=== PATIENT | male | born 1965 | race African-American/Black ===

== ENCOUNTER 2017-03-30 11:37 | Inpatient (IN) | payer OTHER ==
[2017-03-30 12:36] VITALS: BMI 28.8
--- NOTE | 2017-03-30 15:11 | HP ---
CIWA Score - CIWA Score Nausea/Vomitin-Mild Nausea/No Vomiting Muscle Tremors: 3 Anxiety: 2 Agitation: 2 Paroxysmal Sweats: 2 Orientation: 0-Oriented Tacttile Disturbances: 2-Mild Itch/Numbness/Burn Auditory Disturbances: 0-None Visual Disturbances: 0-None Headache: 1-Very Mild CIWA-Ar Total Score: 13 Admission ROS BHS - HPI Chief Complaint: i need to stop drinking cause it interferes with my life. I need to get surgery on my back and I need to stop drinking for it to be done . Allergies/Adverse Reactions: Allergies Allergy/AdvReac Type Severity Reaction Status Date / Time Bleach (Sodium Hypochlorite) Allergy Severe Difficulty Verified 03/30/17 15:05 Breathing seafood Allergy Severe Swelling Uncoded 03/30/17 15:05 NKDA Allergy Uncoded 03/30/17 15:05 History of Present Illness: 52 y/o m pt with h/o chronic alcoholism and cocaine abuse seeking detox. Exam Limitations: No Limitations - Ebola screening Have you traveled outside of the country in the last 21 days: No Have you had contact with anyone from an Ebola affected area: No Have you been sick,other than usual withdrawal symptoms: No Do you have a fever: No - Review of Systems Constitutional: Malaise, Changes in sleep, Weakness EENT: reports: Blurred Vision Respiratory: reports: Shortness of Breath, Wheezing Cardiac: reports: Chest Pain GI: reports: No Symptoms Reported : reports: No Symptoms Reported Musculoskeletal: reports: Joint Pain, Muscle Pain, Muscle Weakness Integumentary: reports: No Symptoms Reported Neuro: reports: Tremors Endocrine: reports: No Symptoms Reported Hematology: reports: No Symptoms Reported Psychiatric: reports: No Sypmtoms Reported Other Systems: Reviewed and Negative Patient History - Patient Medical History Hx Anemia: No Hx Asthma: Yes Hx Chronic Obstructive Pulmonary Disease (COPD): No Hx Cancer: No Hx Cardiac Disorders: Yes (h/o mi x 3) Hx Hypertension: Yes Hx Hypercholesterolemia: Yes Hx Pacemaker: No HX Cerebrovascular Accident: Yes (h/o cva x 4) Hx Seizures: No Hx Dementia: No Hx Diabetes: No Hx Gastrointestinal Disorders: No Hx Liver Disease: No Hx Genitourinary Disorders: No Hx Sexually Transmitted Disorders: No Hx Renal Disease (ESRD): No Hx Thyroid Disease: No Hx Human Immunodeficiency Virus (HIV): No Hx Hepatitis C: No Hx Depression: Yes Hx Suicide Attempt: No Hx Bipolar Disorder: No Hx Schizophrenia: No - Patient Surgical History Past Surgical History: Yes Other Surgical History: berhane . wrist surgery 2nd to fall - PPD History Previous Implant?: Yes Documented Results: Positive w/proof PPD to be Administered?: No - Reproductive History Patient is a Female of Child Bearing Age (11 -55 yrs old): No - Smoking Cessation Smoking history: Current every day smoker Have you smoked in the past 12 months: Yes Aproximately how many cigarettes per day: 2 Hx Chewing Tobacco Use: No Initiated information on smoking cessation: Yes 'Breaking Loose' booklet given: 03/30/17 - Substance & Tx. History Hx Alcohol Use: Yes Hx Substance Use: Yes Substance Use Type: Cocaine Hx Substance Use Treatment: Yes - Substances Abused Alcohol Route: Oral Frequency: Daily Amount used: shanell 1-5th q 3 days , beer > 1 six pk/d Age of first use: 12 Date of Last Use: 03/30/17 Cocaine Route: Inhalation Frequency: 1-3 times last 30 days Amount used: $20. Age of first use: 51 Date of Last Use: 03/28/17 Family Disease History - Family Disease History Family Disease History: Diabetes: Mother (htn), Other: Mother, Brother (htn), Sister (htn ) Admission Physical Exam S - Vital Signs Vital Signs: Vital Signs - 24 hr 03/30/17 12:35 Temperature 97.8 F Pulse Rate 81 Respiratory 20 Rate Blood Pressure 148/107 - Physical General Appearance: Yes: Appropriately Dressed, Anxious HEENTM: Yes: EOMI, Hearing grossly Normal, Normocephalic, Normal Voice, HARMONY Respiratory: Yes: Chest Non-Tender, Lungs Clear, Normal Breath Sounds, No Respiratory Distress Neck: Yes: Within Normal Limits Breast: Yes: Within Normal Limits Cardiology: Yes: Regular Rhythm, Regular Rate, S1, S2 Abdominal: Yes: Normal Bowel Sounds, Non Tender, Flat, Soft, Increased Bowel Sounds Genitourinary: Yes: Hesitency Back: Yes: Decreased Range of Motion Musculoskeletal: Yes: Back pain, Joint Stiffness, Muscle Pain Extremities: Yes: Tremors Neurological: Yes: housekeeping/laundry II-XII NML intact, Fully Oriented, Alert, Motor Strength 5/5 Integumentary: Yes: Moist Lymphatic: Yes: Within Normal Limits - Diagnostic (1) Chronic alcoholism Current Visit: Yes Status: Chronic (2) HTN (hypertension) Current Visit: Yes Status: Chronic Qualifiers: Hypertension type: essential hypertension Qualified Code(s): I10 - Essential (primary) hypertension (3) Hyperlipidemia Current Visit: Yes Status: Chronic Qualifiers: Hyperlipidemia type: unspecified Qualified Code(s): E78.5 - Hyperlipidemia, unspecified (4) Asthma Current Visit: Yes Status: Chronic Qualifiers: Asthma severity: mild intermittent (5) H/O heart disorder Current Visit: Yes Status: Chronic Cleared for Admission BHS - Detox or Rehab [facility] Level of Care: Medically Managed Detox Regimen/Protocol: Librium [facility] Breath Alcohol Content Breath Alcohol Content: 0 Urine Drug Screen - Results Urine Drug Screen Results: JOSSE-Cocaine
[2017-03-30] MEDS ORDERED: MAGNESIUM CITRATE 300 ML BOTTLE PO PRN (15:43)
[2017-03-30] MEDS ORDERED: MAG HYDROX/AL HYDROX/SIMETH 30 ML UNIT-DOSE CUP PO PRN (15:43)
[2017-03-30] MEDS ORDERED: P-EPHED 60MG/TRIPROLIDI 2.5MG TABLET PO PRN (15:43)
[2017-03-30] MEDS ORDERED: MAGNESIUM HYDROX 2400MG/30ML ORAL SUSPENSION 30 ML CUP PO PRN (15:43)
[2017-03-30] MEDS ORDERED: MENTHOL/PHENOL 1 EACH UD MM PRN (15:43)
[2017-03-30] MEDS ORDERED: ACETAMINOPHEN 325 MG TABLET (FP) PO PRN (15:43)
[2017-03-30] MEDS ORDERED: guaiFENesin/D-METHORPHAN HB 10 ML UNIT-DOSE CUPS PO PRN (15:43)
[2017-03-30] MEDS ORDERED: chlordiazePOXIDE HCL 25 MG CAPSULE PO ONE (15:43)
[2017-03-30] MEDS ORDERED: NICOTINE POLACRILEX 2 MG GUM BC PRN (15:43)
[2017-03-30] MEDS ORDERED: chlordiazePOXIDE HCL 25 MG CAPSULE PO PRN (15:43)
[2017-03-30] MEDS ORDERED: LOPERAMIDE HCL 2 MG CAPSULE PO PRN (15:43)
[2017-03-30] MEDS ORDERED: ALBUTEROL SO4 6.7 GM HFA INHALER IH PRN (15:46)
[2017-03-30] MEDS ORDERED: LIDOCAINE 5% TOPICAL PATCH TP ONE (16:30)
[2017-03-30] MEDS ORDERED: ERGOCALCIFEROL (VITAMIN D2) 50,000 UNIT CAPSULE (FP) PO SCH (16:30)
[2017-03-30] MEDS: chlordiazePOXIDE HCL 25 MG CAPSULE PO SCH ×2 (17:11→22:05)
[2017-03-30] MEDS: THIAMINE HCL 100 MG TABLET (FP) PO SCH (22:00)
[2017-03-30] MEDS: IBUPROFEN 400 MG TABLET (FP) PO PRN (22:01)
[2017-03-30] MEDS: LIDOCAINE PATCH REMOVAL MC SCH (22:02)
[2017-03-30] MEDS: ATORVASTATIN CA 10 MG TABLET (FP) PO SCH (22:04)
[2017-03-30 22:14] LABS: URINE APPEARANCE SLCLOUDY; URINE BILIRUBIN NEGATIVE (NEGATIVE); URINE BLOOD NEGATIVE (NEGATIVE); URINE COLOR YELLOW; URINE GLUCOSE (UA) NEGATIVE (NEGATIVE); URINE KETONE NEGATIVE (NEGATIVE); URINE LEUK ESTERASE NEGATIVE (NEGATIVE); URINE NITRITE NEGATIVE (NEGATIVE); URINE PROTEIN NEGATIVE (NEGATIVE); URINE UROBILINOGEN NEGATIVE mg/dL (0.2-1.0)
[2017-03-31] MEDS: chlordiazePOXIDE HCL 25 MG CAPSULE PO SCH ×4 (05:41→22:29)
[2017-03-31 10:02] LABS: MCHC 31.9 g/dl (32.0-35.9); MEAN CELL VOLUME 97.1 fl (80-96); MEAN PLT VOLUME 8.7 fl (7.5-11.1); PLATELET COUNT 191 K/MM3 (134-434); RDW 12.9 % (11.9-15.9); WHITE BLOOD COUNT 6.6 K/mm3 (4.0-10.0)
[2017-03-31 10:19] LABS: ALBUMIN 3.5 g/dl (3.4-5.0); ALK PHOS 52 U/L (45-117); ANION GAP 7 (8-16); BILIRUBIN,TOTAL 0.8 mg/dL (0.2-1.0); CALCIUM 8.9 mg/dL (8.5-10.1); CO2 29 mmol/L (21-32); CREATININE 1.2 mg/dL (0.7-1.3); GLUCOSE,RANDOM 93 mg/dL (74-106); SGOT/AST 7 U/L (15-37); SGPT/ALT 18 U/L (12-78); TOT PROT 6.9 g/dl (6.4-8.2)
[2017-03-31] MEDS: PRENATAL VITAMINS W/ FOLIC ACID TABLET (FP) PO SCH (11:02)
[2017-03-31] MEDS: VALSARTAN 160 MG TABLET (UD) PO SCH (11:03)
--- NOTE | 2017-03-31 11:17 | EKG ---
Test Reason : Blood Pressure : / mmHG Vent. Rate : 063 BPM Atrial Rate : 063 BPM P-R Int : 142 ms QRS Dur : 072 ms QT Int : 428 ms P-R-T Axes : 047 060 047 degrees QTc Int : 437 ms NORMAL SINUS RHYTHM NORMAL ECG NO PREVIOUS ECGS AVAILABLE Confirmed by JUAN MCCLOUD MD ([id number]) on 03/31/2017 11:16:59 AM Referred By: Confirmed By:JUAN MCCLOUD MD
--- NOTE | 2017-03-31 12:07 | PN ---
[facility] CIWA - CIWA Score Nausea/Vomitin-No Nausea/No Vomiting Muscle Tremors: 4-Moderate,w/Arms Extend Anxiety: 4-Mod. Anxious/Guarded Agitation: 4-Moderately Restless Paroxysmal Sweats: 1-Minimal Palms Moist Orientation: 0-Oriented Tacttile Disturbances: 3-Moderate Itch/Numb/Burn Auditory Disturbances: 0-None Visual Disturbances: 0-None Headache: 0-None Present CIWA-Ar Total Score: 16 BHS Progress Note (SOAP) Subjective: ANXIETY; HX CHRONIC BACK AND LEG ACHES; INTERMITTENT SLEEP. Objective: 03/31/17 12:05 Vital Signs Temperature 97.2 F L 03/31/17 10:21 Pulse Rate 91 H 03/31/17 10:21 Respiratory Rate 20 03/31/17 10:21 Blood Pressure 148/105 03/31/17 10:21 O2 Sat by Pulse Oximetry (%) Laboratory Last Values WBC 6.6 K/mm3 (4.0-10.0) 03/31/17 07:00 RBC 4.16 M/mm3 (4.00-5.60) 03/31/17 07:00 Hgb 12.9 GM/dL (11.7-16.9) 03/31/17 07:00 Hct 40.4 % (35.4-49) 03/31/17 07:00 MCV 97.1 fl (80-96) H 03/31/17 07:00 MCH 31.0 pg (25.7-33.7) 03/31/17 07:00 MCHC 31.9 g/dl (32.0-35.9) L 03/31/17 07:00 RDW 12.9 % (11.9-15.9) 03/31/17 07:00 Plt Count 191 K/MM3 (134-434) 03/31/17 07:00 MPV 8.7 fl (7.5-11.1) 03/31/17 07:00 Sodium 143 mmol/L (136-145) 03/31/17 07:00 Potassium 3.7 mmol/L (3.5-5.1) 03/31/17 07:00 Chloride 107 mmol/L (98-107) 03/31/17 07:00 Carbon Dioxide 29 mmol/L (21-32) 03/31/17 07:00 Anion Gap 7 (8-16) L 03/31/17 07:00 BUN 13 mg/dL (7-18) 03/31/17 07:00 Creatinine 1.2 mg/dL (0.7-1.3) 03/31/17 07:00 Creat Clearance w eGFR > 60 (>60) 03/31/17 07:00 Random Glucose 93 mg/dL (74-106) 03/31/17 07:00 Calcium 8.9 mg/dL (8.5-10.1) 03/31/17 07:00 Total Bilirubin 0.8 mg/dL (0.2-1.0) 03/31/17 07:00 AST 7 U/L (15-37) L 03/31/17 07:00 ALT 18 U/L (12-78) 03/31/17 07:00 Alkaline Phosphatase 52 U/L (45-117) 03/31/17 07:00 Total Protein 6.9 g/dl (6.4-8.2) 03/31/17 07:00 Albumin 3.5 g/dl (3.4-5.0) 03/31/17 07:00 Urine Color Yellow 03/30/17 21:45 Urine Appearance Slcloudy 03/30/17 21:45 Urine pH 5.0 (5.0-8.0) 03/30/17 21:45 Urine Protein Negative (NEGATIVE) 03/30/17 21:45 Urine Glucose (UA) Negative (NEGATIVE) 03/30/17 21:45 Urine Ketones Negative (NEGATIVE) 03/30/17 21:45 Urine Blood Negative (NEGATIVE) 03/30/17 21:45 Urine Nitrite Negative (NEGATIVE) 03/30/17 21:45 Urine Bilirubin Negative (NEGATIVE) 03/30/17 21:45 Urine Urobilinogen Negative mg/dL (0.2-1.0) 03/30/17 21:45 Ur Leukocyte Esterase Negative (NEGATIVE) 03/30/17 21:45 Assessment: 03/31/17 12:06 WITHDRAWAL SX Plan: CONTINUE DETOX FLEXERIL AND LIDOCAINE PATCH DIRECTED
[2017-03-31 14:13] LABS: HIV 1 & 2 AB NEGATIVE; HIV 1 AGp24 NEGATIVE
[2017-03-31] MEDS: ATORVASTATIN CA 10 MG TABLET (FP) PO SCH (22:29)
[2017-03-31] MEDS: THIAMINE HCL 100 MG TABLET (FP) PO SCH (22:29)
[2017-03-31] MEDS: LIDOCAINE PATCH REMOVAL MC SCH (22:30)
[2017-03-31] MEDS: diphenhydrAMINE HCL 50 MG CAPSULE PO PRN (22:31)
[2017-03-31] MEDS: CYCLOBENZAPRINE HCL 10 MG TABLET (FP) PO PRN (23:12)
[2017-04-01] MEDS: chlordiazePOXIDE HCL 25 MG CAPSULE PO SCH ×2 (05:44→10:38)
[2017-04-01] MEDS: IBUPROFEN 400 MG TABLET (FP) PO PRN (05:47)
[2017-04-01] MEDS: CYCLOBENZAPRINE HCL 10 MG TABLET (FP) PO PRN ×2 (05:47→22:39)
[2017-04-01] MEDS: PRENATAL VITAMINS W/ FOLIC ACID TABLET (FP) PO SCH (10:36)
[2017-04-01] MEDS: VALSARTAN 160 MG TABLET (UD) PO SCH (12:16)
--- NOTE | 2017-04-01 12:21 | PN ---
[facility] CIWA - CIWA Score Nausea/Vomitin-No Nausea/No Vomiting Muscle Tremors: 4-Moderate,w/Arms Extend Anxiety: 4-Mod. Anxious/Guarded Agitation: 4-Moderately Restless Paroxysmal Sweats: 1-Minimal Palms Moist Orientation: 0-Oriented Tacttile Disturbances: 3-Moderate Itch/Numb/Burn Auditory Disturbances: 0-None Visual Disturbances: 0-None Headache: 0-None Present CIWA-Ar Total Score: 16 S Progress Note (SOAP) Subjective: ANXIETY,SWEATS,TREMORS, FATIGUE. Objective: 04/01/17 12:21 Vital Signs Temperature 96.2 F L 04/01/17 10:20 Pulse Rate 90 04/01/17 10:20 Respiratory Rate 20 04/01/17 10:20 Blood Pressure 162/122 04/01/17 10:20 O2 Sat by Pulse Oximetry (%) Laboratory Last Values WBC 6.6 K/mm3 (4.0-10.0) 03/31/17 07:00 RBC 4.16 M/mm3 (4.00-5.60) 03/31/17 07:00 Hgb 12.9 GM/dL (11.7-16.9) 03/31/17 07:00 Hct 40.4 % (35.4-49) 03/31/17 07:00 MCV 97.1 fl (80-96) H 03/31/17 07:00 MCH 31.0 pg (25.7-33.7) 03/31/17 07:00 MCHC 31.9 g/dl (32.0-35.9) L 03/31/17 07:00 RDW 12.9 % (11.9-15.9) 03/31/17 07:00 Plt Count 191 K/MM3 (134-434) 03/31/17 07:00 MPV 8.7 fl (7.5-11.1) 03/31/17 07:00 Sodium 143 mmol/L (136-145) 03/31/17 07:00 Potassium 3.7 mmol/L (3.5-5.1) 03/31/17 07:00 Chloride 107 mmol/L (98-107) 03/31/17 07:00 Carbon Dioxide 29 mmol/L (21-32) 03/31/17 07:00 Anion Gap 7 (8-16) L 03/31/17 07:00 BUN 13 mg/dL (7-18) 03/31/17 07:00 Creatinine 1.2 mg/dL (0.7-1.3) 03/31/17 07:00 Creat Clearance w eGFR > 60 (>60) 03/31/17 07:00 Random Glucose 93 mg/dL (74-106) 03/31/17 07:00 Calcium 8.9 mg/dL (8.5-10.1) 03/31/17 07:00 Total Bilirubin 0.8 mg/dL (0.2-1.0) 03/31/17 07:00 AST 7 U/L (15-37) L 03/31/17 07:00 ALT 18 U/L (12-78) 03/31/17 07:00 Alkaline Phosphatase 52 U/L (45-117) 03/31/17 07:00 Total Protein 6.9 g/dl (6.4-8.2) 03/31/17 07:00 Albumin 3.5 g/dl (3.4-5.0) 03/31/17 07:00 Urine Color Yellow 03/30/17 21:45 Urine Appearance Slcloudy 03/30/17 21:45 Urine pH 5.0 (5.0-8.0) 03/30/17 21:45 Ur Specific [place] >= 1.030 (1.005-1.025) H 03/30/17 21:45 Urine Protein Negative (NEGATIVE) 03/30/17 21:45 Urine Glucose (UA) Negative (NEGATIVE) 03/30/17 21:45 Urine Ketones Negative (NEGATIVE) 03/30/17 21:45 Urine Blood Negative (NEGATIVE) 03/30/17 21:45 Urine Nitrite Negative (NEGATIVE) 03/30/17 21:45 Urine Bilirubin Negative (NEGATIVE) 03/30/17 21:45 Urine Urobilinogen Negative mg/dL (0.2-1.0) 03/30/17 21:45 Ur Leukocyte Esterase Negative (NEGATIVE) 03/30/17 21:45 RPR Titer Nonreactive (NONREACTIVE) 03/31/17 07:00 HIV 1&2 Antibody Screen Negative 03/31/17 07:00 HIV P24 Antigen Negative 03/31/17 07:00 Assessment: 04/01/17 12:21 WITHDRAWAL SX Plan: CONTINUE DETOX
[2017-04-01] MEDS ORDERED: cloNIDine HCL 0.1 MG TABLET PO PRN (12:24)
[2017-04-01] MEDS ORDERED: chlordiazePOXIDE HCL 25 MG CAPSULE PO ONE (14:00)
[2017-04-01] MEDS: chlordiazePOXIDE 5 MG CAPSULE PO SCH ×2 (17:53→22:37)
[2017-04-01] MEDS: THIAMINE HCL 100 MG TABLET (FP) PO SCH (22:37)
[2017-04-01] MEDS: ATORVASTATIN CA 10 MG TABLET (FP) PO SCH (22:37)
[2017-04-01] MEDS: diphenhydrAMINE HCL 50 MG CAPSULE PO PRN (22:38)
[2017-04-01] MEDS: LIDOCAINE PATCH REMOVAL MC SCH (22:39)
[2017-04-02] MEDS: chlordiazePOXIDE 5 MG CAPSULE PO SCH ×2 (06:18→10:17)
[2017-04-02 09:39] VITALS: BP 137/110; PULSE 93; TEMP 97.9
[2017-04-02] MEDS: PRENATAL VITAMINS W/ FOLIC ACID TABLET (FP) PO SCH (10:17)
[2017-04-02] MEDS: VALSARTAN 160 MG TABLET (UD) PO SCH (10:17)
--- NOTE | 2017-04-02 14:58 | DS ---
[facility] Detox Discharge Summary Admission Date: 03/30/17 Discharge Date: 04/02/17 - History Present History: Alcohol Dependence Additional Comments: PATIENT DOES NOT WISH TO STAY TO COMPLETE DETOX REGIMEN. PATIENT ADVISED TO IMMEDIATELY GO TO NEAREST ER SHOULD ANY INTOLERABLE DETOX SYMPTOMS DEVELOP AT ANY TIME. PATIENT LEFT UNIT IN STABLE MEDICAL CONDITION. Pertinent Past History: HTN, History of [place], History of CVA, Asthma, Hyperlipidemia. - Physical Exam Results Vital Signs: Vital Signs Temperature 97.9 F 04/02/17 09:38 Pulse Rate 93 H 04/02/17 09:38 Respiratory Rate 18 04/02/17 09:38 Blood Pressure 137/110 04/02/17 09:38 O2 Sat by Pulse Oximetry (%) Pertinent Admission Physical Exam Findings: WITHDRAWAL SYMPTOMS. Laboratory Tests 03/30/17 03/31/17 03/31/17 21:45 07:00 07:00 WBC 6.6 RBC 4.16 Hgb 12.9 Hct 40.4 MCV 97.1 H MCH 31.0 MCHC 31.9 L RDW 12.9 Plt Count 191 MPV 8.7 Sodium 143 Potassium 3.7 Chloride 107 Carbon Dioxide 29 Anion Gap 7 L BUN 13 Creatinine 1.2 Creat Clearance w eGFR > 60 Random Glucose 93 Calcium 8.9 Total Bilirubin 0.8 AST 7 L ALT 18 Alkaline Phosphatase 52 Total Protein 6.9 Albumin 3.5 Urine Color Yellow Urine Appearance Slcloudy Urine pH 5.0 Ur Specific [place] >= 1.030 H Urine Protein Negative Urine Glucose (UA) Negative Urine Ketones Negative Urine Blood Negative Urine Nitrite Negative Urine Bilirubin Negative Urine Urobilinogen Negative Ur Leukocyte Esterase Negative RPR Titer HIV 1&2 Antibody Screen HIV P24 Antigen 03/31/17 03/31/17 07:00 07:00 WBC RBC Hgb Hct MCV MCH MCHC RDW Plt Count MPV Sodium Potassium Chloride Carbon Dioxide Anion Gap BUN Creatinine Creat Clearance w eGFR Random Glucose Calcium Total Bilirubin AST ALT Alkaline Phosphatase Total Protein Albumin Urine Color Urine Appearance Urine pH Ur Specific [place] Urine Protein Urine Glucose (UA) Urine Ketones Urine Blood Urine Nitrite Urine Bilirubin Urine Urobilinogen Ur Leukocyte Esterase RPR Titer Nonreactive HIV 1&2 Antibody Screen Negative HIV P24 Antigen Negative LABS NOTED. - Treatment Hospital Course: Detoxed Safely - Medication Discharge Medications: Ambulatory Orders Albuterol Sulfate Inhaler - [Ventolin Hfa Inhaler -] 2 inh PO Q4H PRN 03/30/17 Ergocalciferol (Vitamin D2) [Vitamin D2] 50,000 unit PO WEEKLY 03/30/17 Multivitamins [Tab-A-Vit -] 1 tab PO DAILY 03/30/17 Pravastatin Sodium [Pravachol (Nf)] 20 mg PO HS 03/30/17 Valsartan 320 mg PO DAILY 03/30/17 - Diagnosis (1) Alcohol dependence with uncomplicated withdrawal Current Visit: Yes Status: Acute (2) Asthma Current Visit: Yes Status: Chronic Qualifiers: Asthma severity: mild intermittent Asthma complication type: uncomplicated Qualified Code(s): J45.20 - Mild intermittent asthma, uncomplicated (3) H/O heart disorder Current Visit: Yes Status: Chronic (4) HTN (hypertension) Current Visit: Yes Status: Chronic Qualifiers: Hypertension type: essential hypertension Qualified Code(s): I10 - Essential (primary) hypertension (5) Hyperlipidemia Current Visit: Yes Status: Chronic Qualifiers: Hyperlipidemia type: unspecified Qualified Code(s): E78.5 - Hyperlipidemia, unspecified - AMA Did Patient Leave Against Medical Advice: Yes (PATIENT DID NOT WISH TO STAY TO COMPLETE DETOX REGIMEN.)
[2017-04-02] MEDS ORDERED: chlordiazePOXIDE HCL 10 MG CAPSULE PO SCH (17:00)
== END 2017-04-02 15:00 | disposition left against medical advice (07) | DRG 770 ==
LOC: EDBD 11:37 → YASAS 11:37 → Y3N 15:57
PROVIDERS: ADMIT Internal Medicine; ATTEND Internal Medicine
PROC: HZ2ZZZZ Detoxification Services for Substance Abuse Treatment (ICD-10-PCS; principal; 2017-04-02)
DX: F10.230 Alcohol dependence with withdrawal, uncomplicated (principal); F14.20 Cocaine dependence, uncomplicated; F32.9 Major depressive disorder, single episode, unspecified; I10 Essential (primary) hypertension; E78.00 Pure hypercholesterolemia, unspecified; J45.20 Mild intermittent asthma, uncomplicated; I25.2 Old myocardial infarction; Z86.73 Personal history of transient ischemic attack (TIA), and cerebral infarction without residual deficits
CPT/HCPCS: 36415; 71020-TC; 80053; 81003; 85027; 86593; 87389; 93005; 93010

== ENCOUNTER 2017-10-07 10:27 | Inpatient (IN) | payer OTHER ==
[2017-10-07 11:35] VITALS: BMI 27.6
--- NOTE | 2017-10-07 17:42 | HP ---
CIWA Score - CIWA Score Nausea/Vomitin-No Nausea/No Vomiting Muscle Tremors: 4-Moderate,w/Arms Extend Anxiety: 4-Mod. Anxious/Guarded Agitation: 2 Paroxysmal Sweats: 3 Orientation: 0-Oriented Tacttile Disturbances: 0-None Auditory Disturbances: 0-None Visual Disturbances: 3-Moderate Sensitivity Headache: 0-None Present CIWA-Ar Total Score: 16 Admission ROS S - HPI Chief Complaint: "I have to get off of these drugs and Alcohol." Patient is here to Detox from Alcohol. Allergies/Adverse Reactions: Allergies Allergy/AdvReac Type Severity Reaction Status Date / Time Bleach (Sodium Hypochlorite) Allergy Severe Difficulty Verified 10/07/17 16:35 Breathing seafood Allergy Severe Swelling Uncoded 10/07/17 16:35 NKDA Allergy Uncoded 10/07/17 16:35 History of Present Illness: Patient is a 52 YO male here to Detox from Alcohol. Patient has had a previous Detox admission at [facility] in 03/2017. Patient had a Detox admission at [facility] ([place], [place] approx. 3 weeks ago. Patient completed full detox program; however, he relapsed 2-3 days after discharge. Exam Limitations: No Limitations - Ebola screening Have you traveled outside of the country in the last 21 days: No Have you had contact with anyone from an Ebola affected area: No Have you been sick,other than usual withdrawal symptoms: No Do you have a fever: No - Review of Systems Constitutional: Chills, Diaphoresis, Malaise, Changes in sleep, Unintentional Wgt. Loss (Lost approx. 20 lbs. over last two months.) EENT: reports: No Symptoms Reported Respiratory: reports: Shortness of Breath Cardiac: reports: Palpitations GI: reports: No Symptoms Reported : reports: Urgency Musculoskeletal: reports: Back Pain, Muscle Pain, Neck Pain, Joint Stiffness Integumentary: reports: No Symptoms Reported Neuro: reports: Numbness (Bilateral Legs and Feet (due to back injury @ 1997).) , Tingling (Bilateral Legs and Feet (due to back injury @ 1997).), Tremors Endocrine: reports: No Symptoms Reported Hematology: reports: No Symptoms Reported Psychiatric: reports: Judgement Intact, Mood/Affect Appropiate, Orientated x3, Depressed (No Previous Treatment.) Other Systems: Reviewed and Negative Patient History - Patient Medical History Hx Anemia: No Hx Asthma: Yes (Uses MDI PRN.) Hx Chronic Obstructive Pulmonary Disease (COPD): No Hx Cancer: No Hx Cardiac Disorders: No Hx Congestive Heart Failure: No Hx Hypertension: Yes (non compliant with meds.) Hx Hypercholesterolemia: Yes (On med.) Hx Pacemaker: No HX Cerebrovascular Accident: Yes (h/o cva x 4 (Last: 2012).) Hx Seizures: No Hx Dementia: No Hx Diabetes: No Hx Gastrointestinal Disorders: No Hx Liver Disease: No Hx Genitourinary Disorders: No Hx Sexually Transmitted Disorders: Yes (Pt was tx for gonnorhea (approx. 1 month ago).) Hx Renal Disease (ESRD): No Hx Thyroid Disease: No Hx Human Immunodeficiency Virus (HIV): No (Negative History.) Hx Hepatitis C: No (Never Tested.) Hx Depression: Yes (No Previous Treatment.) Hx Suicide Attempt: No (PATIENT DENIES CURRENT SI / HI.) Hx Bipolar Disorder: No Hx Schizophrenia: No Other Medical History: Spinal Injury (Lumbar);Work-Related,1997;Residual Weakness in bilateral leg - Patient Surgical History Past Surgical History: Yes Hx Neurologic Surgery: No Hx Cataract Extraction: No Hx Cardiac Surgery: No Hx Lung Surgery: No Hx Breast Surgery: No Hx Breast Biopsy: No Hx Abdominal Surgery: No Hx Appendectomy: No Hx Cholecystectomy: No Hx Genitourinary Surgery: No Hx Section: No Hx Orthopedic Surgery: No Other Surgical History: Bilateral wrist surgery 2nd to fall tendon repairs (1992 ). Anesthesia Reaction: No - PPD History Previous Implant?: Yes Documented Results: Positive w/proof (CXR (03/2017): Negative for Acute Pathology.) Implanted On Prior [facility] Admission?: No PPD to be Administered?: No - Reproductive History Patient is a Female of Child Bearing Age (11 -55 yrs old): No (PATIENT IS MALE.) - Smoking Cessation Smoking history: Current every day smoker Have you smoked in the past 12 months: Yes Aproximately how many cigarettes per day: 5 Cigars Per Day: 0 Hx Chewing Tobacco Use: No Initiated information on smoking cessation: Yes 'Breaking Loose' booklet given: 10/07/17 (GIVEN TO PATIENT.) - Substance & Tx. History Hx Alcohol Use: Yes Hx Substance Use: Yes Substance Use Type: Alcohol, Cocaine Hx Substance Use Treatment: Yes (Detox admission at [facility] (08/2017); Detox at [facility] (03/2017).) - Substances Abused Alcohol Route: Oral Frequency: Daily Amount used: 3 - 40 oz beers Age of first use: 12 Date of Last Use: 10/07/17 Cocaine Route: Smoking Frequency: Daily Amount used: $10-20 Age of first use: 21 Date of Last Use: 10/07/17 Family Disease History - Family Disease History Family Disease History: Diabetes: Mother (htn), Other: Mother, Sister (htn ) Admission Physical Exam [facility] - Vital Signs Vital Signs: Vital Signs - 24 hr 10/07/17 10/07/17 11:34 16:18 Temperature 97.4 F L 97.4 F L Pulse Rate 108 H 108 H Respiratory 18 18 Rate Blood Pressure 115/77 115/77 - Physical General Appearance: Yes: No Apparent Distress, Nourished, Appropriately Dressed , Tremorous, Anxious HEENTM: Yes: Hearing grossly Normal, Normocephalic, Normal Voice, HARMONY, Pharynx Normal Respiratory: Yes: Chest Non-Tender, Lungs Clear, No Respiratory Distress, No Accessory Muscle Use Neck: Yes: No masses,lesions,Nodules, Supple, Trachea in good position Breast: Yes: Breast Exam Deferred Cardiology: Yes: Regular Rhythm, Regular Rate, S1, S2 Abdominal: Yes: Normal Bowel Sounds, Non Tender, Flat, Protuberent Genitourinary: Yes: Within Normal Limits Back: Yes: CVA Tenderness, Decreased Range of Motion Musculoskeletal: Yes: Gait Steady, Back pain, Joint Stiffness, Muscle Pain Extremities: Yes: Tremors Neurological: Yes: Fully Oriented, Alert, Normal Mood/Affect, Normal Response, Other (Weakness in bilateral legs and feet (Secondary to Work-Related injury in 1997).) Integumentary: Yes: Normal Color, Dry, Warm Lymphatic: Yes: Within Normal Limits - Diagnostic (1) Chronic back pain Current Visit: Yes Status: Chronic Qualifiers: Back pain location: low back pain Back pain laterality: bilateral Sciatica presence: with sciatica Sciatica laterality: bilateral sciatica Qualified Code(s): M54.42 - Lumbago with sciatica, left side; M54.41 - Lumbago with sciatica, right side; M54.41 - Lumbago with sciatica, right side; G89.29 - Other chronic pain; G89.29 - Other chronic pain (2) Depression (emotion) Current Visit: Yes Status: Chronic Qualifiers: Depression Type: unspecified Qualified Code(s): F32.9 - Major depressive disorder, single episode, unspecified (3) Nicotine dependence Current Visit: Yes Status: Chronic Qualifiers: Nicotine product type: cigarettes Substance use status: uncomplicated Qualified Code(s): F17.210 - Nicotine dependence, cigarettes, uncomplicated (4) Alcohol dependence with uncomplicated withdrawal Current Visit: Yes Status: Acute (5) Cocaine dependence, uncomplicated Current Visit: Yes Status: Acute (6) Asthma Current Visit: Yes Status: Chronic Qualifiers: Asthma severity: mild Asthma persistence: intermittent Asthma complication type: uncomplicated Qualified Code(s): J45.20 - Mild intermittent asthma, uncomplicated (7) HTN (hypertension) Current Visit: Yes Status: Chronic Qualifiers: Hypertension type: essential hypertension Qualified Code(s): I10 - Essential (primary) hypertension (8) Hyperlipidemia Current Visit: Yes Status: Chronic Qualifiers: Hyperlipidemia type: unspecified Qualified Code(s): E78.5 - Hyperlipidemia , unspecified (9) History of back injury Current Visit: Yes Status: Chronic Cleared for Admission S - Detox or Rehab [facility] Level of Care: Medically Managed Detox Regimen/Protocol: Librium S Breath Alcohol Content Breath Alcohol Content: 0.097 Urine Drug Screen - Results Drug Screen Negative: No Urine Drug Screen Results: THC-Marijuana, JOSSE-Cocaine
[2017-10-07] MEDS ORDERED: MAGNESIUM HYDROX 2400MG/30ML ORAL SUSPENSION 30 ML CUP PO PRN (18:15)
[2017-10-07] MEDS ORDERED: MAG HYDROX/AL HYDROX/SIMETH 30 ML UNIT-DOSE CUP PO PRN (18:15)
[2017-10-07] MEDS ORDERED: NICOTINE POLACRILEX 2 MG GUM BC PRN (18:15)
[2017-10-07] MEDS ORDERED: P-EPHED 60MG/TRIPROLIDI 2.5MG TABLET PO PRN (18:15)
[2017-10-07] MEDS ORDERED: IBUPROFEN 400 MG TABLET (FP) PO PRN (18:15)
[2017-10-07] MEDS ORDERED: chlordiazePOXIDE HCL 25 MG CAPSULE PO PRN (18:15)
[2017-10-07] MEDS ORDERED: MENTHOL/PHENOL 1 EACH UD MM PRN (18:15)
[2017-10-07] MEDS ORDERED: guaiFENesin/D-METHORPHAN HB 10 ML UNIT-DOSE CUPS PO PRN (18:15)
[2017-10-07] MEDS ORDERED: LOPERAMIDE HCL 2 MG CAPSULE PO PRN (18:15)
[2017-10-07] MEDS ORDERED: MAGNESIUM CITRATE 300 ML BOTTLE PO PRN (18:15)
[2017-10-07] MEDS ORDERED: ALBUTEROL SO4 18 GM HFA INHALER IH PRN (18:17)
[2017-10-07] MEDS ORDERED: chlordiazePOXIDE HCL 25 MG CAPSULE PO ONE (18:45)
[2017-10-07] MEDS: CYCLOBENZAPRINE HCL 10 MG TABLET (FP) PO PRN (21:46)
[2017-10-07] MEDS: ATORVASTATIN CA 10 MG TABLET (FP) PO SCH (21:46)
[2017-10-07] MEDS: NICOTINE 14 MG/24 HOURS TOPICAL PATCH TD SCH (21:48)
[2017-10-07] MEDS: THIAMINE HCL 100 MG TABLET (FP) PO SCH (23:28)
[2017-10-07] MEDS: chlordiazePOXIDE HCL 25 MG CAPSULE PO SCH (23:28)
[2017-10-08 00:34] LABS: URINE APPEARANCE TURBID; URINE BILIRUBIN NEGATIVE (NEGATIVE); URINE BLOOD NEGATIVE (NEGATIVE); URINE COLOR YELLOW; URINE GLUCOSE (UA) NEGATIVE (NEGATIVE); URINE KETONE NEGATIVE (NEGATIVE); URINE LEUK ESTERASE TRACE (NEGATIVE); URINE NITRITE NEGATIVE (NEGATIVE); URINE PROTEIN NEGATIVE (NEGATIVE)
[2017-10-08 00:48] LABS: URINE BACTERIA RARE /hpf (NONE SEEN); URINE MUCUS MANY; YEAST MANY
[2017-10-08] MEDS: chlordiazePOXIDE HCL 25 MG CAPSULE PO SCH ×4 (06:15→22:09)
[2017-10-08] MEDS: CYCLOBENZAPRINE HCL 10 MG TABLET (FP) PO PRN ×2 (06:16→22:09)
[2017-10-08] MEDS: VALSARTAN 160 MG TABLET (UD) PO SCH (10:49)
[2017-10-08] MEDS: NICOTINE 14 MG/24 HOURS TOPICAL PATCH TD SCH (10:49)
[2017-10-08] MEDS: PRENATAL VITAMINS W/ FOLIC ACID TABLET (FP) PO SCH (10:49)
[2017-10-08 10:54] LABS: HEMATOCRIT 39.1 % (35.4-49); HEMOGLOBIN 12.9 GM/dL (11.7-16.9); MCH 32.1 pg (25.7-33.7); MEAN CELL VOLUME 97.2 fl (80-96); MEAN PLT VOLUME 9.4 fl (7.5-11.1); PLATELET COUNT 237 K/MM3 (134-434); RBC 4.02 M/mm3 (4.00-5.60); RDW 12.7 % (11.9-15.9)
[2017-10-08 11:20] LABS: CHLORIDE 106 mmol/L (98-107); POTASSIUM 3.9 mmol/L (3.5-5.1); SODIUM 142 mmol/L (136-145)
[2017-10-08 11:31] LABS: ALBUMIN 4.2 g/dl (3.4-5.0); ALK PHOS 69 U/L (45-117); ANION GAP 15 (8-16); BLOOD UREA NITROGEN 16 mg/dL (7-18); CALCIUM 9.4 mg/dL (8.5-10.1); CO2 21 mmol/L (21-32); CREATININE 1.3 mg/dL (0.7-1.3); GLUCOSE,RANDOM 95 mg/dL (74-106); SGOT/AST 14 U/L (15-37); SGPT/ALT 12 U/L (12-78); TOT PROT 7.9 g/dl (6.4-8.2)
--- NOTE | 2017-10-08 11:56 | EKG ---
Test Reason : Blood Pressure : / mmHG Vent. Rate : 085 BPM Atrial Rate : 085 BPM P-R Int : 150 ms QRS Dur : 074 ms QT Int : 364 ms P-R-T Axes : 061 068 058 degrees QTc Int : 433 ms NORMAL SINUS RHYTHM NONSPECIFIC ST ABNORMALITY ABNORMAL ECG WHEN COMPARED WITH ECG OF 30-MAR-2017 16:18, NO SIGNIFICANT CHANGE WAS FOUND Confirmed by MD KATINA, PHUONG (2012) on 10/08/2017 11:55:32 AM Referred By: Confirmed By:PHUONG AMBRIZ MD
--- NOTE | 2017-10-08 13:11 | PN ---
S CIWA - CIWA Score Nausea/Vomitin Muscle Tremors: 3 Anxiety: 2 Agitation: 2 Paroxysmal Sweats: 1-Minimal Palms Moist Orientation: 0-Oriented Tacttile Disturbances: 1-Very Mild Itch/Numbness Auditory Disturbances: 1-Very Mild Visual Disturbances: 2-Mild Sensitivity Headache: 2-Mild CIWA-Ar Total Score: 17 BHS Progress Note (SOAP) Subjective: ALERT,IRRITABLE,ANXIOUS,INTERRUPTED SLEEP,TREMOR Objective: 10/08/17 13:08 Vital Signs Temperature 97.7 F 10/08/17 11:43 Pulse Rate 87 10/08/17 11:43 Respiratory Rate 18 10/08/17 11:43 Blood Pressure 147/111 10/08/17 11:43 O2 Sat by Pulse Oximetry (%) EKG NSR RATE 85/MIN NO CHEST PAIN,NO SOB,NO DIZZINESS 10/08/17 13:09 Laboratory Last Values WBC 8.0 K/mm3 (4.0-10.0) 10/08/17 05:40 RBC 4.02 M/mm3 (4.00-5.60) 10/08/17 05:40 Hgb 12.9 GM/dL (11.7-16.9) 10/08/17 05:40 Hct 39.1 % (35.4-49) 10/08/17 05:40 MCV 97.2 fl (80-96) H 10/08/17 05:40 MCH 32.1 pg (25.7-33.7) 10/08/17 05:40 MCHC 33.0 g/dl (32.0-35.9) 10/08/17 05:40 RDW 12.7 % (11.9-15.9) 10/08/17 05:40 Plt Count 237 K/MM3 (134-434) D 10/08/17 05:40 MPV 9.4 fl (7.5-11.1) 10/08/17 05:40 Sodium 142 mmol/L (136-145) 10/08/17 05:40 Potassium 3.9 mmol/L (3.5-5.1) 10/08/17 05:40 Chloride 106 mmol/L (98-107) 10/08/17 05:40 Carbon Dioxide 21 mmol/L (21-32) D 10/08/17 05:40 Anion Gap 15 (8-16) 10/08/17 05:40 BUN 16 mg/dL (7-18) D 10/08/17 05:40 Creatinine 1.3 mg/dL (0.7-1.3) 10/08/17 05:40 Creat Clearance w eGFR 58.20 (>60) 10/08/17 05:40 Random Glucose 95 mg/dL (74-106) 10/08/17 05:40 Calcium 9.4 mg/dL (8.5-10.1) 10/08/17 05:40 Total Bilirubin 1.0 mg/dL (0.2-1.0) D 10/08/17 05:40 AST 14 U/L (15-37) L D 10/08/17 05:40 ALT 12 U/L (12-78) D 10/08/17 05:40 Alkaline Phosphatase 69 U/L (45-117) D 10/08/17 05:40 Total Protein 7.9 g/dl (6.4-8.2) 10/08/17 05:40 Albumin 4.2 g/dl (3.4-5.0) 10/08/17 05:40 Urine Color Yellow 10/07/17 21:22 Urine Appearance Turbid 10/07/17 21:22 Urine pH 5.0 (5.0-8.0) 10/07/17 21:22 Ur Specific [place] 1.026 (1.001-1.035) 10/07/17 21:22 Urine Protein Negative (NEGATIVE) 10/07/17 21:22 Urine Glucose (UA) Negative (NEGATIVE) 10/07/17 21:22 Urine Ketones Negative (NEGATIVE) 10/07/17 21:22 Urine Blood Negative (NEGATIVE) 10/07/17 21:22 Urine Nitrite Negative (NEGATIVE) 10/07/17 21:22 Urine Bilirubin Negative (NEGATIVE) 10/07/17 21:22 Urine Urobilinogen 2.0 mg/dL (0.2-1.0) 10/07/17 21:22 Ur Leukocyte Esterase Trace (NEGATIVE) 10/07/17 21:22 Urine WBC (Auto) 10 /hpf (3-5) 10/07/17 21:22 Urine RBC (Auto) 3 /hpf (0-3) 10/07/17 21:22 Urine Bacteria Rare /hpf (NONE SEEN) 10/07/17 21:22 Urine Mucus Many 10/07/17 21:22 Urine Yeast Many 10/07/17 21:22 Assessment: 10/08/17 13:10 WITHDRAWAL SYMPTOM Plan: CONTINUE DETOX,REPEAT UA
[2017-10-08] MEDS: ATORVASTATIN CA 10 MG TABLET (FP) PO SCH (22:08)
[2017-10-08] MEDS: THIAMINE HCL 100 MG TABLET (FP) PO SCH (22:08)
[2017-10-09] MEDS: chlordiazePOXIDE HCL 25 MG CAPSULE PO SCH ×3 (06:35→18:14)
[2017-10-09] MEDS: PRENATAL VITAMINS W/ FOLIC ACID TABLET (FP) PO SCH (10:24)
[2017-10-09] MEDS: VALSARTAN 160 MG TABLET (UD) PO SCH (10:25)
[2017-10-09] MEDS: NICOTINE 14 MG/24 HOURS TOPICAL PATCH TD SCH (10:25)
--- NOTE | 2017-10-09 10:37 | PN ---
S CIWA - CIWA Score Nausea/Vomitin-Mild Nausea/No Vomiting Muscle Tremors: 3 Anxiety: 3 Agitation: 3 Paroxysmal Sweats: 1-Minimal Palms Moist Orientation: 0-Oriented Tacttile Disturbances: 1-Very Mild Itch/Numbness Auditory Disturbances: 0-None Visual Disturbances: 0-None Headache: 1-Very Mild CIWA-Ar Total Score: 13 BHS Progress Note (SOAP) Subjective: mild headache tremor anxiety sweat restlessness Objective: 10/09/17 10:35 Vital Signs Temperature 97.7 F 10/09/17 08:02 Pulse Rate 69 10/09/17 08:02 Respiratory Rate 18 10/09/17 08:02 Blood Pressure 140/96 10/09/17 08:02 O2 Sat by Pulse Oximetry (%) Laboratory Last Values WBC 8.0 K/mm3 (4.0-10.0) 10/08/17 05:40 RBC 4.02 M/mm3 (4.00-5.60) 10/08/17 05:40 Hgb 12.9 GM/dL (11.7-16.9) 10/08/17 05:40 Hct 39.1 % (35.4-49) 10/08/17 05:40 MCV 97.2 fl (80-96) H 10/08/17 05:40 MCH 32.1 pg (25.7-33.7) 10/08/17 05:40 MCHC 33.0 g/dl (32.0-35.9) 10/08/17 05:40 RDW 12.7 % (11.9-15.9) 10/08/17 05:40 Plt Count 237 K/MM3 (134-434) D 10/08/17 05:40 MPV 9.4 fl (7.5-11.1) 10/08/17 05:40 Sodium 142 mmol/L (136-145) 10/08/17 05:40 Potassium 3.9 mmol/L (3.5-5.1) 10/08/17 05:40 Chloride 106 mmol/L (98-107) 10/08/17 05:40 Carbon Dioxide 21 mmol/L (21-32) D 10/08/17 05:40 Anion Gap 15 (8-16) 10/08/17 05:40 BUN 16 mg/dL (7-18) D 10/08/17 05:40 Creatinine 1.3 mg/dL (0.7-1.3) 10/08/17 05:40 Creat Clearance w eGFR 58.20 (>60) 10/08/17 05:40 Random Glucose 95 mg/dL (74-106) 10/08/17 05:40 Calcium 9.4 mg/dL (8.5-10.1) 10/08/17 05:40 Total Bilirubin 1.0 mg/dL (0.2-1.0) D 10/08/17 05:40 AST 14 U/L (15-37) L D 10/08/17 05:40 ALT 12 U/L (12-78) D 10/08/17 05:40 Alkaline Phosphatase 69 U/L (45-117) D 10/08/17 05:40 Total Protein 7.9 g/dl (6.4-8.2) 10/08/17 05:40 Albumin 4.2 g/dl (3.4-5.0) 10/08/17 05:40 Urine Color Yellow 10/07/17 21:22 Urine Appearance Turbid 10/07/17 21:22 Urine pH 5.0 (5.0-8.0) 10/07/17 21:22 Ur Specific [place] 1.026 (1.001-1.035) 10/07/17 21:22 Urine Protein Negative (NEGATIVE) 10/07/17 21:22 Urine Glucose (UA) Negative (NEGATIVE) 10/07/17 21:22 Urine Ketones Negative (NEGATIVE) 10/07/17 21:22 Urine Blood Negative (NEGATIVE) 10/07/17 21:22 Urine Nitrite Negative (NEGATIVE) 10/07/17 21:22 Urine Bilirubin Negative (NEGATIVE) 10/07/17 21:22 Urine Urobilinogen 2.0 mg/dL (0.2-1.0) 10/07/17 21:22 Ur Leukocyte Esterase Trace (NEGATIVE) 10/07/17 21:22 Urine WBC (Auto) 10 /hpf (3-5) 10/07/17 21:22 Urine RBC (Auto) 3 /hpf (0-3) 10/07/17 21:22 Urine Bacteria Rare /hpf (NONE SEEN) 10/07/17 21:22 Urine Mucus Many 10/07/17 21:22 Urine Yeast Many 10/07/17 21:22 HIV 1&2 Antibody Screen Negative 10/08/17 05:40 HIV P24 Antigen Negative 10/08/17 05:40 lab noted Assessment: 10/09/17 10:36 withdrawal sx Plan: continue detox
[2017-10-09] MEDS: ATORVASTATIN CA 10 MG TABLET (FP) PO SCH (22:16)
[2017-10-09] MEDS: THIAMINE HCL 100 MG TABLET (FP) PO SCH (22:16)
[2017-10-09] MEDS: CYCLOBENZAPRINE HCL 10 MG TABLET (FP) PO PRN (22:16)
[2017-10-09] MEDS: chlordiazePOXIDE 5 MG CAPSULE PO SCH (22:16)
[2017-10-10] MEDS: chlordiazePOXIDE 5 MG CAPSULE PO SCH ×3 (05:27→17:58)
[2017-10-10] MEDS: CYCLOBENZAPRINE HCL 10 MG TABLET (FP) PO PRN ×2 (05:30→17:55)
--- NOTE | 2017-10-10 10:42 | PN ---
BHS Progress Note (SOAP) Subjective: sweat tremor anxiety restlessness Objective: 10/10/17 10:41 Vital Signs Temperature 97 F L 10/10/17 06:00 Pulse Rate 76 10/10/17 06:00 Respiratory Rate 18 10/10/17 06:00 Blood Pressure 117/73 10/10/17 06:00 O2 Sat by Pulse Oximetry (%) Laboratory Last Values WBC 8.0 K/mm3 (4.0-10.0) 10/08/17 05:40 RBC 4.02 M/mm3 (4.00-5.60) 10/08/17 05:40 Hgb 12.9 GM/dL (11.7-16.9) 10/08/17 05:40 Hct 39.1 % (35.4-49) 10/08/17 05:40 MCV 97.2 fl (80-96) H 10/08/17 05:40 MCH 32.1 pg (25.7-33.7) 10/08/17 05:40 MCHC 33.0 g/dl (32.0-35.9) 10/08/17 05:40 RDW 12.7 % (11.9-15.9) 10/08/17 05:40 Plt Count 237 K/MM3 (134-434) D 10/08/17 05:40 MPV 9.4 fl (7.5-11.1) 10/08/17 05:40 Sodium 142 mmol/L (136-145) 10/08/17 05:40 Potassium 3.9 mmol/L (3.5-5.1) 10/08/17 05:40 Chloride 106 mmol/L (98-107) 10/08/17 05:40 Carbon Dioxide 21 mmol/L (21-32) D 10/08/17 05:40 Anion Gap 15 (8-16) 10/08/17 05:40 BUN 16 mg/dL (7-18) D 10/08/17 05:40 Creatinine 1.3 mg/dL (0.7-1.3) 10/08/17 05:40 Creat Clearance w eGFR 58.20 (>60) 10/08/17 05:40 Random Glucose 95 mg/dL (74-106) 10/08/17 05:40 Calcium 9.4 mg/dL (8.5-10.1) 10/08/17 05:40 Total Bilirubin 1.0 mg/dL (0.2-1.0) D 10/08/17 05:40 AST 14 U/L (15-37) L D 10/08/17 05:40 ALT 12 U/L (12-78) D 10/08/17 05:40 Alkaline Phosphatase 69 U/L (45-117) D 10/08/17 05:40 Total Protein 7.9 g/dl (6.4-8.2) 10/08/17 05:40 Albumin 4.2 g/dl (3.4-5.0) 10/08/17 05:40 Urine Color Yellow 10/07/17 21:22 Urine Appearance Turbid 10/07/17 21:22 Urine pH 5.0 (5.0-8.0) 10/07/17 21:22 Ur Specific [place] 1.026 (1.001-1.035) 10/07/17 21:22 Urine Protein Negative (NEGATIVE) 10/07/17 21:22 Urine Glucose (UA) Negative (NEGATIVE) 10/07/17 21:22 Urine Ketones Negative (NEGATIVE) 10/07/17 21:22 Urine Blood Negative (NEGATIVE) 10/07/17 21:22 Urine Nitrite Negative (NEGATIVE) 10/07/17 21:22 Urine Bilirubin Negative (NEGATIVE) 10/07/17 21:22 Urine Urobilinogen 2.0 mg/dL (0.2-1.0) 10/07/17 21:22 Ur Leukocyte Esterase Trace (NEGATIVE) 10/07/17 21:22 Urine WBC (Auto) 10 /hpf (3-5) 10/07/17 21:22 Urine RBC (Auto) 3 /hpf (0-3) 10/07/17 21:22 Urine Bacteria Rare /hpf (NONE SEEN) 10/07/17 21:22 Urine Mucus Many 10/07/17 21:22 Urine Yeast Many 10/07/17 21:22 RPR Titer Nonreactive (NONREACTIVE) 10/08/17 05:40 HIV 1&2 Antibody Screen Negative 10/08/17 05:40 HIV P24 Antigen Negative 10/08/17 05:40 lab n oted Assessment: 10/10/17 10:42 withdrawal sx Plan: continue detox
[2017-10-10] MEDS: VALSARTAN 160 MG TABLET (UD) PO SCH (11:28)
[2017-10-10] MEDS: PRENATAL VITAMINS W/ FOLIC ACID TABLET (FP) PO SCH (11:28)
[2017-10-10] MEDS: NICOTINE 14 MG/24 HOURS TOPICAL PATCH TD SCH (11:28)
--- NOTE | 2017-10-10 17:33 | CONSULT ---
[facility] Psychiatric Consult - Data Date of interview: 10/10/17 Admission source: [facility] Identifying data: Readmission to [facility] for this 53 y/o AA male seeking detox treatment on for alcohol,cocaine (crack) and cannabis dependence.Patient is ,a father of two,homeless,unemployed and supported on SSI benefits. Substance Abuse History: Confirmed by patient in this interview.Smoking history : Current every day smoker. Have you smoked in the past 12 months: Yes. Aproximately how many cigarettes per day: 5. Cigars Per Day: 0. Hx Chewing Tobacco Use: No. Initiated information on smoking cessation: Yes. 'Breaking Loose' booklet given: 10/07/17 (GIVEN TO PATIENT.). - Substance & Tx. History. Hx Alcohol Use: Yes. Hx Substance Use: Yes. Substance Use Type: Alcohol, Cocaine. Hx Substance Use Treatment: Yes (Detox admission at [facility] (08/2017); Detox at [facility] (03/2017).). - Substances Abused. Alcohol. Route: Oral. Frequency: Daily. Amount used: 3 - 40 oz beers. Age of first use: 12. Date of Last Use: 10/07/17. Cocaine. Route: Smoking. Frequency: Daily. Amount used: $10-20. Age of first use: 21. 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 Psychiatric History: Patient denies. Physical/Sexual Abuse/Trauma History: Patient denies. Additional Comment: Urine Drug Screen Results: THC-Marijuana, JOSSE-Cocaine.Noted. Mental Status Exam - Mental Status Exam Alert and Oriented to: Time, Place, Person Cognitive Function: Good Patient Appearance: Well Groomed Mood: Withdrawn, Hopeful Affect: Normal Range Patient Behavior: Fatigued, Appropriate, Cooperative Speech Pattern: Clear, Appropriate Voice Loudness: Normal Thought Process: Intact, Goal Oriented Thought Disorder: Not Present Hallucinations: Denies Suicidal Ideation: Denies Homicidal Ideation: Denies Insight/Judgement: Poor Sleep: Well Appetite: Good Gait/Station: Normal Psychiatric Findings - Problem List ([place] 1, 2,3) (1) Alcohol dependence with uncomplicated withdrawal Current Visit: Yes Status: Acute (2) Cocaine dependence, uncomplicated Current Visit: Yes Status: Acute (3) Cannabis abuse Current Visit: Yes Status: Acute (4) Nicotine dependence Current Visit: Yes Status: Acute Qualifiers: Nicotine product type: cigarettes Substance use status: uncomplicated Qualified Code(s): F17.210 - Nicotine dependence, cigarettes, uncomplicated - Initial Treatment Plan Initial Treatment Plan: Psychoeducation.Sleep hygiene.Detoxification initiated and well tolerated.Group therapy and recreational activities.Emphasis on awareness of the impact of substance dependence upon various avenues of life ( insight-oriented sessions).Daily monitoring of clinical progress.
[2017-10-10] MEDS: ACETAMINOPHEN 325 MG TABLET (FP) PO PRN (17:55)
[2017-10-10 22:43] LABS: URINE APPEARANCE CLEAR; URINE BILIRUBIN NEGATIVE (NEGATIVE); URINE BLOOD NEGATIVE (NEGATIVE); URINE COLOR YELLOW; URINE GLUCOSE (UA) NEGATIVE (NEGATIVE); URINE KETONE NEGATIVE (NEGATIVE); URINE LEUK ESTERASE NEGATIVE (NEGATIVE); URINE NITRITE NEGATIVE (NEGATIVE); URINE PROTEIN NEGATIVE (NEGATIVE)
[2017-10-10] MEDS: ATORVASTATIN CA 10 MG TABLET (FP) PO SCH (23:56)
[2017-10-10] MEDS: chlordiazePOXIDE HCL 10 MG CAPSULE PO SCH (23:56)
[2017-10-10] MEDS: THIAMINE HCL 100 MG TABLET (FP) PO SCH (23:57)
[2017-10-11] MEDS: chlordiazePOXIDE HCL 10 MG CAPSULE PO SCH ×3 (05:49→11:17)
[2017-10-11 06:44] VITALS: BP 147/106; PULSE 80; TEMP 98.4
[2017-10-11] MEDS ORDERED: cloNIDine HCL 0.1 MG TABLET PO ONE (06:57)
[2017-10-11] MEDS: VALSARTAN 160 MG TABLET (UD) PO SCH (09:18)
[2017-10-11] MEDS: PRENATAL VITAMINS W/ FOLIC ACID TABLET (FP) PO SCH (09:18)
[2017-10-11] MEDS: ACETAMINOPHEN 325 MG TABLET (FP) PO PRN (09:19)
--- NOTE | 2017-10-11 11:15 | DS ---
[facility] Detox Discharge Summary Admission Date: 10/07/17 Discharge Date: 10/11/17 - History Present History: Alcohol Dependence - Physical Exam Results Vital Signs: Vital Signs Temperature 98.4 F 10/11/17 06:00 Pulse Rate 80 10/11/17 06:00 Respiratory Rate 18 10/11/17 06:00 Blood Pressure 147/106 10/11/17 06:00 O2 Sat by Pulse Oximetry (%) Pertinent Admission Physical Exam Findings: withdrawal sx Laboratory Last Values WBC 8.0 K/mm3 (4.0-10.0) 10/08/17 05:40 RBC 4.02 M/mm3 (4.00-5.60) 10/08/17 05:40 Hgb 12.9 GM/dL (11.7-16.9) 10/08/17 05:40 Hct 39.1 % (35.4-49) 10/08/17 05:40 MCV 97.2 fl (80-96) H 10/08/17 05:40 MCH 32.1 pg (25.7-33.7) 10/08/17 05:40 MCHC 33.0 g/dl (32.0-35.9) 10/08/17 05:40 RDW 12.7 % (11.9-15.9) 10/08/17 05:40 Plt Count 237 K/MM3 (134-434) D 10/08/17 05:40 MPV 9.4 fl (7.5-11.1) 10/08/17 05:40 Sodium 142 mmol/L (136-145) 10/08/17 05:40 Potassium 3.9 mmol/L (3.5-5.1) 10/08/17 05:40 Chloride 106 mmol/L (98-107) 10/08/17 05:40 Carbon Dioxide 21 mmol/L (21-32) D 10/08/17 05:40 Anion Gap 15 (8-16) 10/08/17 05:40 BUN 16 mg/dL (7-18) D 10/08/17 05:40 Creatinine 1.3 mg/dL (0.7-1.3) 10/08/17 05:40 Creat Clearance w eGFR 58.20 (>60) 10/08/17 05:40 Random Glucose 95 mg/dL (74-106) 10/08/17 05:40 Calcium 9.4 mg/dL (8.5-10.1) 10/08/17 05:40 Total Bilirubin 1.0 mg/dL (0.2-1.0) D 10/08/17 05:40 AST 14 U/L (15-37) L D 10/08/17 05:40 ALT 12 U/L (12-78) D 10/08/17 05:40 Alkaline Phosphatase 69 U/L (45-117) D 10/08/17 05:40 Total Protein 7.9 g/dl (6.4-8.2) 10/08/17 05:40 Albumin 4.2 g/dl (3.4-5.0) 10/08/17 05:40 Urine Color Yellow 10/10/17 16:00 Urine Appearance Clear 10/10/17 16:00 Urine pH 6.0 (5.0-8.0) 10/10/17 16:00 Ur Specific [place] 1.024 (1.001-1.035) 10/10/17 16:00 Urine Protein Negative (NEGATIVE) 10/10/17 16:00 Urine Glucose (UA) Negative (NEGATIVE) 10/10/17 16:00 Urine Ketones Negative (NEGATIVE) 10/10/17 16:00 Urine Blood Negative (NEGATIVE) 10/10/17 16:00 Urine Nitrite Negative (NEGATIVE) 10/10/17 16:00 Urine Bilirubin Negative (NEGATIVE) 10/10/17 16:00 Urine Urobilinogen 2.0 mg/dL (0.2-1.0) 10/10/17 16:00 Ur Leukocyte Esterase Negative (NEGATIVE) 10/10/17 16:00 Urine WBC (Auto) 10 /hpf (3-5) 10/07/17 21:22 Urine RBC (Auto) 3 /hpf (0-3) 10/07/17 21:22 Urine Bacteria Rare /hpf (NONE SEEN) 10/07/17 21:22 Urine Mucus Many 10/07/17 21:22 Urine Yeast Many 10/07/17 21:22 RPR Titer Nonreactive (NONREACTIVE) 10/08/17 05:40 HIV 1&2 Antibody Screen Negative 10/08/17 05:40 HIV P24 Antigen Negative 10/08/17 05:40 lab noted - Treatment Hospital Course: Detox Protocol Followed, Detoxed Safely, Responded well, Discharged Condition Good, Rehab Referral Accepted Patient has Accepted a Rehab Referral to: patient wants to go to [place] - Medication Discharge Medications: Ambulatory Orders Ergocalciferol (Vitamin D2) [Vitamin D2] 50,000 unit PO WEEKLY 03/30/17 Multivitamins [Multivit ([facility] Formulary)] 1 tab PO DAILY 03/30/17 Albuterol Sulfate Inhaler - [Ventolin HFA Inhaler -] 2 inh PO Q4H PRN #1 inhaler 10/11/17 Pravastatin Sodium [Pravachol -] 20 mg PO HS #30 tablet 10/11/17 Valsartan 320 mg PO DAILY #30 tablet 10/11/17 - Diagnosis (1) Alcohol dependence with uncomplicated withdrawal Current Visit: Yes Status: Acute (2) Nicotine dependence Current Visit: Yes Status: Acute Qualifiers: Nicotine product type: cigarettes Substance use status: in withdrawal Qualified Code(s): F17.213 - Nicotine dependence, cigarettes, with withdrawal (3) Asthma Current Visit: Yes Status: Chronic Qualifiers: Asthma severity: mild Asthma persistence: intermittent Asthma complication type: uncomplicated Qualified Code(s): J45.20 - Mild intermittent asthma, uncomplicated (4) HTN (hypertension) Current Visit: Yes Status: Chronic Qualifiers: Hypertension type: essential hypertension Qualified Code(s): I10 - Essential (primary) hypertension (5) Hyperlipidemia Current Visit: Yes Status: Chronic Qualifiers: Hyperlipidemia type: unspecified Qualified Code(s): E78.5 - Hyperlipidemia , unspecified - AMA Did Patient Leave Against Medical Advice: No
[2017-10-11] MEDS: NICOTINE 14 MG/24 HOURS TOPICAL PATCH TD SCH (11:17)
== END 2017-10-11 13:49 | disposition home or self-care (01) | DRG 774 ==
LOC: YASAS 10:27 → Y6N 17:13
PROVIDERS: ADMIT Internal Medicine; ATTEND Internal Medicine
PROC: HZ2ZZZZ Detoxification Services for Substance Abuse Treatment (ICD-10-PCS; principal; 2017-10-07)
DX: F10.230 Alcohol dependence with withdrawal, uncomplicated (principal); F14.20 Cocaine dependence, uncomplicated; F17.213 Nicotine dependence, cigarettes, with withdrawal; F32.9 Major depressive disorder, single episode, unspecified; I10 Essential (primary) hypertension; J45.20 Mild intermittent asthma, uncomplicated; E78.5 Hyperlipidemia, unspecified; M54.42 Lumbago with sciatica, left side; M54.41 Lumbago with sciatica, right side; G89.29 Other chronic pain; Z86.73 Personal history of transient ischemic attack (TIA), and cerebral infarction without residual deficits; Z91.012 Allergy to eggs; Z88.8 Allergy status to other drugs, medicaments and biological substances; Z91.14 Patient's other noncompliance with medication regimen; Z87.438 Personal history of other diseases of male genital organs
CPT/HCPCS: 36415; 80053; 81003; 81015; 85027; 86593; 87389; 93005; 93010; J0735

== ENCOUNTER 2021-08-09 10:08 | Inpatient (IN) | payer OTHER ==
[2021-08-09 12:22] VITALS: BMI 29.1
[2021-08-09] MEDS ORDERED: MENTHOL/PHENOL 1 EACH UD MM PRN (12:36)
[2021-08-09] MEDS ORDERED: ONDANSETRON *ODT* 4 MG TABLET SL PRN (12:36)
[2021-08-09] MEDS ORDERED: IBUPROFEN 400 MG TABLET (FP) PO PRN (12:36)
[2021-08-09] MEDS ORDERED: NICOTINE 10 MG CARTRIDGE (INHALER) IH PRN (12:36)
[2021-08-09] MEDS ORDERED: MAG HYDROX/AL HYDROX/SIMETH 30 ML UNIT-DOSE CUP PO PRN (12:36)
[2021-08-09] MEDS ORDERED: MAGNESIUM HYDROX 2400MG/30ML ORAL SUSPENSION 30 ML CUP PO PRN (12:36)
[2021-08-09] MEDS ORDERED: ACETAMINOPHEN 325 MG TABLET (FP) PO PRN ×2 (12:36)
[2021-08-09] MEDS ORDERED: chlordiazePOXIDE HCL 25 MG CAPSULE PO PRN (12:36)
[2021-08-09] MEDS ORDERED: BISMUTH SUBSALICYLATE 524 MG/30 ML PO PRN (12:36)
[2021-08-09] MEDS ORDERED: MAGNESIUM CITRATE 300 ML BOTTLE PO PRN (12:36)
[2021-08-09] MEDS ORDERED: ALBUTEROL SO4 HFA INHALER IH PRN (12:44)
[2021-08-09] MEDS: METHOCARBAMOL 500 MG TABLET PO PRN (13:45)
[2021-08-09] MEDS: hydrOXYzine PAMOATE 25 MG CAPSULE (FP) PO SCH ×3 (13:45→23:26)
[2021-08-09] MEDS: chlordiazePOXIDE HCL 25 MG CAPSULE PO SCH ×2 (17:33→23:26)
[2021-08-09] MEDS: THIAMINE HCL 100 MG TABLET (FP) PO SCH (23:20)
[2021-08-09] MEDS: ATORVASTATIN CA 80 MG TABLET (FP) PO SCH (23:20)
[2021-08-09] MEDS: APIXABAN 5 MG TABLET PO SCH (23:20)
[2021-08-09] MEDS: METOPROLOL TARTRATE 25 MG TABLET (FP) PO SCH (23:20)
[2021-08-09] MEDS: SACUBITRIL/VALSARTAN 24 MG-26 MG TABLET PO SCH (23:20)
[2021-08-09] MEDS: MELATONIN 5 MG TABLETS PO SCH (23:26)
[2021-08-10] MEDS: chlordiazePOXIDE HCL 25 MG CAPSULE PO SCH ×4 (06:02→23:14)
[2021-08-10] MEDS: hydrOXYzine PAMOATE 25 MG CAPSULE (FP) PO SCH ×5 (06:02→22:38)
[2021-08-10] MEDS: APIXABAN 5 MG TABLET PO SCH ×2 (10:32→22:38)
[2021-08-10] MEDS: SACUBITRIL/VALSARTAN 24 MG-26 MG TABLET PO SCH ×2 (10:32→22:39)
[2021-08-10] MEDS: METHOCARBAMOL 500 MG TABLET PO PRN (10:32)
[2021-08-10] MEDS: PRENATAL VITAMINS W/ FOLIC ACID TABLET (FP) PO SCH (10:32)
[2021-08-10] MEDS: METOPROLOL TARTRATE 25 MG TABLET (FP) PO SCH ×2 (10:32→22:38)
[2021-08-10 11:16] LABS: HEMATOCRIT 37.9 % (35.4-49); HEMOGLOBIN 12.1 GM/dL (11.7-16.9); MCH 29.7 pg (25.7-33.7); MCHC 31.9 g/dl (32.0-35.9); MEAN PLT VOLUME 8.8 fl (7.5-11.1); PLATELET COUNT 210 10^3/uL (134-434); RBC 4.08 M/mm3 (4.00-5.60); RDW 13.6 % (11.9-15.9); WHITE BLOOD COUNT 4.8 K/mm3 (4.0-10.0)
[2021-08-10 11:17] LABS: CALCIUM 8.9 mg/dL (8.5-10.1)
[2021-08-10 11:18] LABS: ALBUMIN 3.4 g/dl (3.4-5.0); BLOOD UREA NITROGEN 18.8 mg/dL (7-18)
[2021-08-10 11:22] LABS: BILIRUBIN,TOTAL 1.1 mg/dL (0.2-1); TOT PROT 6.7 g/dl (6.4-8.2)
[2021-08-10 12:11] LABS: HIV INTERPRETATION NEGATIVE (NEGATIVE)
[2021-08-10] MEDS: ATORVASTATIN CA 80 MG TABLET (FP) PO SCH (22:37)
[2021-08-10] MEDS: MELATONIN 5 MG TABLETS PO SCH (22:38)
[2021-08-10] MEDS: THIAMINE HCL 100 MG TABLET (FP) PO SCH (22:38)
[2021-08-11] MEDS: hydrOXYzine PAMOATE 25 MG CAPSULE (FP) PO SCH ×5 (05:48→22:14)
[2021-08-11] MEDS: chlordiazePOXIDE HCL 25 MG CAPSULE PO SCH ×4 (05:48→22:14)
[2021-08-11] MEDS: PRENATAL VITAMINS W/ FOLIC ACID TABLET (FP) PO SCH (10:35)
[2021-08-11] MEDS: METOPROLOL TARTRATE 25 MG TABLET (FP) PO SCH ×2 (10:35→22:14)
[2021-08-11] MEDS: APIXABAN 5 MG TABLET PO SCH ×2 (10:35→22:14)
[2021-08-11] MEDS: SACUBITRIL/VALSARTAN 24 MG-26 MG TABLET PO SCH ×2 (10:36→22:14)
[2021-08-11] MEDS: MELATONIN 5 MG TABLETS PO SCH (22:14)
[2021-08-11] MEDS: ATORVASTATIN CA 80 MG TABLET (FP) PO SCH (22:14)
[2021-08-11] MEDS: THIAMINE HCL 100 MG TABLET (FP) PO SCH (22:14)
[2021-08-12] MEDS ORDERED: chlordiazePOXIDE HCL 10 MG CAPSULE PO PRN
[2021-08-12] MEDS: hydrOXYzine PAMOATE 25 MG CAPSULE (FP) PO SCH ×5 (06:14→22:27)
[2021-08-12] MEDS: chlordiazePOXIDE HCL 10 MG CAPSULE PO SCH ×4 (06:14→22:26)
[2021-08-12] MEDS: METOPROLOL TARTRATE 25 MG TABLET (FP) PO SCH ×2 (10:41→22:26)
[2021-08-12] MEDS: APIXABAN 5 MG TABLET PO SCH ×2 (10:41→22:26)
[2021-08-12] MEDS: PRENATAL VITAMINS W/ FOLIC ACID TABLET (FP) PO SCH (10:41)
[2021-08-12] MEDS: SACUBITRIL/VALSARTAN 24 MG-26 MG TABLET PO SCH ×2 (10:42→22:27)
[2021-08-12] MEDS: ATORVASTATIN CA 80 MG TABLET (FP) PO SCH (22:26)
[2021-08-12] MEDS: THIAMINE HCL 100 MG TABLET (FP) PO SCH (22:26)
[2021-08-12] MEDS: MELATONIN 5 MG TABLETS PO SCH (22:27)
[2021-08-13] MEDS: hydrOXYzine PAMOATE 25 MG CAPSULE (FP) PO SCH ×5 (05:14→21:58)
[2021-08-13] MEDS: chlordiazePOXIDE HCL 10 MG CAPSULE PO SCH ×2 (05:14→18:24)
[2021-08-13] MEDS: APIXABAN 5 MG TABLET PO SCH ×2 (10:38→21:58)
[2021-08-13] MEDS: METOPROLOL TARTRATE 25 MG TABLET (FP) PO SCH ×2 (10:38→21:58)
[2021-08-13] MEDS: PRENATAL VITAMINS W/ FOLIC ACID TABLET (FP) PO SCH (10:38)
[2021-08-13] MEDS: SACUBITRIL/VALSARTAN 24 MG-26 MG TABLET PO SCH ×2 (10:38→21:59)
[2021-08-13] MEDS: ATORVASTATIN CA 80 MG TABLET (FP) PO SCH (21:58)
[2021-08-13] MEDS: THIAMINE HCL 100 MG TABLET (FP) PO SCH (21:58)
[2021-08-13] MEDS: MELATONIN 5 MG TABLETS PO SCH (21:58)
[2021-08-14] MEDS ORDERED: chlordiazePOXIDE HCL 10 MG CAPSULE PO ONE (05:00)
[2021-08-14] MEDS: hydrOXYzine PAMOATE 25 MG CAPSULE (FP) PO SCH ×2 (06:13→09:55)
[2021-08-14] MEDS: PRENATAL VITAMINS W/ FOLIC ACID TABLET (FP) PO SCH (09:55)
[2021-08-14] MEDS: METOPROLOL TARTRATE 25 MG TABLET (FP) PO SCH (09:55)
[2021-08-14] MEDS: METHOCARBAMOL 500 MG TABLET PO PRN (09:55)
[2021-08-14] MEDS: SACUBITRIL/VALSARTAN 24 MG-26 MG TABLET PO SCH (09:55)
[2021-08-14] MEDS: APIXABAN 5 MG TABLET PO SCH (09:55)
[2021-08-14 09:59] VITALS: BP 129/89; PULSE 100; TEMP 98.4
== END 2021-08-14 10:09 | disposition home or self-care (01) | DRG 774 ==
LOC: YASAS 10:08 → Y6N 12:12
PROVIDERS: ADMIT Allergy & Immunology; ATTEND Allergy & Immunology
PROC: HZ2ZZZZ Detoxification Services for Substance Abuse Treatment (ICD-10-PCS; principal; 2021-08-09)
DX: F10.230 Alcohol dependence with withdrawal, uncomplicated (principal); F14.20 Cocaine dependence, uncomplicated; F12.20 Cannabis dependence, uncomplicated; F17.210 Nicotine dependence, cigarettes, uncomplicated; F31.9 Bipolar disorder, unspecified; I25.10 Atherosclerotic heart disease of native coronary artery without angina pectoris; I10 Essential (primary) hypertension; J45.20 Mild intermittent asthma, uncomplicated; C61 Malignant neoplasm of prostate; Z95.1 Presence of aortocoronary bypass graft; I25.2 Old myocardial infarction; Z86.19 Personal history of other infectious and parasitic diseases; Z79.01 Long term (current) use of anticoagulants; Z56.0 Unemployment, unspecified; Z99.89 Dependence on other enabling machines and devices
CPT/HCPCS: 36415; 71046-TC-FY; 80053; 85027; 86780; 87389; 93005; 93010; C9803; U0003; U0005